=== PATIENT | female | born 1955 | race Caucasian/White ===

== ENCOUNTER 2022-07-04 15:30 | Emergency (ER) | payer BC, MEDICARE ==
[2022-07-04 15:38] VITALS: RESP 16; TEMP 98
--- NOTE | 2022-07-04 15:40 | ED ---
General Adult HPI - General Source: patient, family, RN notes reviewed Mode of arrival: ambulatory Limitations: no limitations <Nathanael Artis - Last Filed: 07/04/22 15:38> <Jaden Villa - Last Filed: 07/04/22 20:33> - General Stated complaint: Dizziness,hypertension Time Seen by Provider: 07/04/22 15:34 - History of Present Illness Initial comments: 67-year-old female presents emergency Department from urgent care with chief complaint of feeling lightheaded, hypertension. Patient states she just feels off she states almost lightheaded or discharges. She moves quickly. Patient was seen in urgent care and found to be hypertensive. Patient states she is very anxious about her blood pressure she does not that she does have a history of hypertension but takes some organic medications for she is on no prescription medications. Patient denies any current complaints of chest pain or shortness of breath she has a focal weakness no nausea vomiting diarrhea constipation. Patient states she's had some dizziness and the past. (Nathanael Artis) This is a 67-year-old female presents emergency department stating that she get up this morning and felt off his if things are moving slightly. Patient states she focused on one thing it would settle down. Patient states she didn't think she would fall over but she felt like she needed to sit down to stabilize herself. Patient states she also comes in because her blood pressure was elevated. Patient states she has high blood pressure but she's been taking some organic medication for blood pressure. Patient denies numbness weakness. Patient denies chest pain difficulty breathing first breath per patient denies any palpitations. Patient denies any deafness or ringing in ears. Patient denies any recent fever chills or cough. Patient states she hasn't been sick at all. Patient denies any nausea vomiting diarrhea. Patient denies any abdominal pain. Patient denies any dysuria hematuria urinary frequency. Patient states she had vertigo about 7 years ago and was worked up by ENT had a CAT scan of her injury as well as CT of her head. Patient also has high blood pressure at that time. (Jaden Villa) - Related Data Home Medications Medication Instructions Recorded Confirmed Aspirin 81 mg PO DAILY 07/10/14 07/10/14 Esomeprazole Magnesium [NexIUM] 40 mg PO DAILY 07/10/14 07/10/14 Pravastatin Sodium [Pravachol] 80 mg PO HS 07/10/14 07/10/14 Previous Rx's Medication Instructions Recorded Meclizine [Antivert] 25 mg PO TID #20 tab 07/10/14 amLODIPine [Norvasc] 10 mg PO DAILY #30 tablet 07/04/22 Allergies Allergy/AdvReac Type Severity Reaction Status Date / Time acetaminophen Allergy Unknown Verified 07/10/14 20:54 [From Darvocet-N] NSAIDS (Non-Steroidal Allergy Unknown Verified 07/10/14 21:07 Anti-Inflamma propoxyphene napsylate Allergy Unknown Verified 07/10/14 20:54 [From Darvocet-N] Sulfa (Sulfonamide Allergy Unknown Verified 07/10/14 20:54 Antibiotics) tuberculin, purified protein Allergy Unknown Verified 07/10/14 20:58 deriva [tuberculin,purif.prot.deriv.] Review of Systems ROS Other: All systems not noted in ROS Statement are negative. <Nathanael Artis - Last Filed: 07/04/22 15:38> ROS Other: All systems not noted in ROS Statement are negative. <Jaden Villa - Last Filed: 07/04/22 20:33> ROS Statement: Those systems with pertinent positive or pertinent negative responses have been documented in the HPI. Past Medical History Past Medical History: CVA/TIA, Hyperlipidemia Additional Past Medical History / Comment(s): TIA 2007 History of Any Multi-Drug Resistant Organisms: None Reported Past Surgical History: No Surgical Hx Reported Past Psychological History: No Psychological Hx Reported Smoking Status: Current every day smoker Past Alcohol Use History: Rare Past Drug Use History: None Reported <Nathanael Artis - Last Filed: 07/04/22 15:38> General Exam Limitations: no limitations <Nathanael Artis - Last Filed: 07/04/22 15:38> <Jaden Villa - Last Filed: 07/04/22 20:33> - General Exam Comments Initial Comments: GENERAL: Patient is well-developed and well-nourished. Patient is nontoxic and well- hydrated and is in mild distress. ENT: Neck is soft and supple. No significant lymphadenopathy is noted. Oropharynx is clear. Moist mucous membranes. Neck has full range of motion without eliciting any pain. EYES: The sclera were anicteric and conjunctiva were pink and moist. Extraocular movements were intact and pupils were equal round and reactive to light. Eyelids were unremarkable. Patient has no nystagmus PULMONARY: Unlabored respirations. Good breath sounds bilaterally. No audible rales rhonchi or wheezing was noted. CARDIOVASCULAR: There is a regular rate and rhythm without any murmurs gallops or rubs. ABDOMEN: Soft and nontender with normal bowel sounds. SKIN: Skin is clear with no lesions or rashes and otherwise unremarkable. NEUROLOGIC: Patient is alert and oriented x3. Cranial nerves II through XII are grossly intact. Motor and sensory are also intact. Normal speech, volume and content. Symmetrical smile. Finger to nose testing is normal bilaterally MUSCULOSKELETAL: Normal extremities with adequate strength and full range of motion. No lower extremity swelling or edema. No calf tenderness. LYMPHATICS: No significant lymphadenopathy is noted PSYCHIATRIC: Normal psychiatric evaluation. (Jaden Villa) Course Vital Signs 07/04/22 07/04/22 15:34 20:00 Temperature 98 F Pulse Rate 64 50 L Respiratory 16 16 Rate Blood Pressure 199/93 174/76 O2 Sat by Pulse 98 98 Oximetry Medical Decision Making - Lab Data Result diagrams: 07/04/22 16:11 07/04/22 16:11 <Jaden Villa - Last Filed: 07/04/22 20:33> - Medical Decision Making EKG was interpreted by myself. EKG shows normal sinus rhythm at 60 bpm AL interval 170 QRS is 90 QT interval 44 QTC is 44 per patient's EKG shows no ST segment elevation or depression. Was pt. sent in by a medical professional or institution? @ -None Did you speak to anyone other than the patient for history? @ -Family Did you review nursing and triage notes? @ -Agreed with nursing notes Were old charts reviewed? @ -I reviewed previous CT scans back from 2014 when she had vertigo at that time Differential Diagnosis? @ -Differential Dizziness: Benign paroxysmal positional Vertigo, Menieres disease, otitis media, acoustic neuroma, vertebrobasilar insufficiency, cerebellar stroke, encephalitis, hypovolemic, arrhythmia, coronary artery syndrome, anemia, this is not meant to be an all-inclusive list EKG interpreted by me (3pts min.)? @ -As above X-rays interpreted by me (1pt min.)? @ -None CT interpreted by me (1pt min.)? @ -Computed tomography scan was interpreted by myself CT of the brain showed no acute abnormality U/S interpreted by me (1pt. min.)? @ -None What testing was considered but not performed? (CT, X-rays, U/S, labs)? Why? @ -None What meds were considered but not given? Why? @ -I considered giving the patient Antivert however the patient or to have Antivert home so decided against that. Did you discuss the management of the patient with other professionals? @ -None Did you reconcile home meds? @ -No Was smoking cessation discussed for >3mins.? @ -None Was critical care preformed (if so, how long)? @ -None Were there social determinants of health that impacted care today? How? (Homelessness, low income, unemployed, alcoholism, drug addiction, transportation, low edu. Level, literacy, decrease access to med. care, long term, rehab)? @ -No Was there de-escalation of care discussed even if they declined? (Discuss DNR or withdrawal of care, Hospice)? @ -None What co-morbidities impacted this encounter? (DM, HTN, Smoking, COPD, CAD, Cancer, CVA, Hep., AIDS, mental health diagnosis, sleep apnea, morbid obesity)? @ -Patient has hypertension and that may be increasing her symptoms because last time she was here she was very hypertensive and again having vertigo-like symptoms Was patient admitted / discharged? @ -Patient will be discharged home with blood pressure medications and she has Antivert already at home. Undiagnosed new problem with uncertain prognosis? @ -No Drug Therapy requiring intensive monitoring for toxicity (Heparin, Nitro, Insulin, Cardizem)? @ -No Were any procedures done? @ -Known Diagnosis/symptom? @ -Vertigo Acute, or Chronic, or Acute on Chronic? @ -Acute Uncomplicated (without systemic symptoms) or Complicated (systemic symptoms)? @ -Uncomplicated Side effects of treatment? @ -None Exacerbation, Progression, or Severe Exacerbation] @ -No Poses a threat to life or bodily function? @ -No Diagnosis/symptom? @ -Hypertensive urgency Acute, or Chronic, or Acute on Chronic? @ -Acute on chronic Uncomplicated (without systemic symptoms) or Complicated (systemic symptoms)? @ -Complicated because the patient is now having vertigo Side effects of treatment? @ -None Exacerbation, Progression, or Severe Exacerbation] @ -Exacerbation Poses a threat to life or bodily function? @ -No (Jaden Villa) - Lab Data Lab Results 07/04/22 07/04/22 07/04/22 Range/Units 16:11 16:11 16:11 WBC 9.7 (3.8-10.6) k/uL RBC 5.50 H (3.80-5.40) m/uL Hgb 16.3 H (11.4-16.0) gm/dL Hct 48.0 H (34.0-46.0) % MCV 87.4 (80.0-100.0) fL MCH 29.6 (25.0-35.0) pg MCHC 33.8 (31.0-37.0) g/dL RDW 13.0 (11.5-15.5) % Plt Count 298 (150-450) k/uL MPV 8.1 Neutrophils % 58 % Lymphocytes % 34 % Monocytes % 4 % Eosinophils % 2 % Basophils % 1 % Neutrophils # 5.6 (1.3-7.7) k/uL Lymphocytes # 3.3 (1.0-4.8) k/uL Monocytes # 0.3 (0-1.0) k/uL Eosinophils # 0.2 (0-0.7) k/uL Basophils # 0.1 (0-0.2) k/uL Sodium 140 (137-145) mmol/L Potassium 4.2 (3.5-5.1) mmol/L Chloride 107 (98-107) mmol/L Carbon Dioxide 25 (22-30) mmol/L Anion Gap 8 mmol/L BUN 11 (7-17) mg/dL Creatinine 0.77 (0.52-1.04) mg/dL Est GFR (CKD-EPI)AfAm >90 (>60 ml/min/1.73 sqM) Est GFR (CKD-EPI)NonAf 81 (>60 ml/min/1.73 sqM) Glucose 100 H (74-99) mg/dL Calcium 9.4 (8.4-10.2) mg/dL Magnesium 1.9 (1.6-2.3) mg/dL Total Bilirubin 0.4 (0.2-1.3) mg/dL AST 22 (14-36) U/L ALT 22 (4-34) U/L Alkaline Phosphatase 122 (38-126) U/L Troponin I <0.012 (0.000-0.034) ng/mL Total Protein 7.4 (6.3-8.2) g/dL Albumin 4.2 (3.5-5.0) g/dL Disposition <Nathanael Artis - Last Filed: 07/04/22 15:38> Is patient prescribed a controlled substance at d/c from ED?: No Time of Disposition: 20:32 <Jaden Villa - Last Filed: 07/04/22 20:33> Clinical Impression: Vertigo, Hypertensive urgency Disposition: HOME SELF-CARE Condition: Good Instructions (If sedation given, give patient instructions): Hypertension (ED), Vertigo (ED) Prescriptions: amLODIPine [Norvasc] 10 mg PO DAILY #30 tablet Referrals: Michael Christianson DO [Primary Care Provider] - 1-2 days
[2022-07-04 16:32] LABS: Basophils # (A) 0.1 k/uL (0-0.2); Basophils % (A) 1 %; Eosinophils # (A) 0.2 k/uL (0-0.7); Eosinophils % (A) 2 %; HGB 16.3 gm/dL (11.4-16.0); Lymphocytes # (A) 3.3 k/uL (1.0-4.8); Lymphocytes % (A) 34 %; MCH 29.6 pg (25.0-35.0); MCHC 33.8 g/dL (31.0-37.0); MCV 87.4 fL (80.0-100.0); Mean Platelet Volume 8.1; Monocytes # (A) 0.3 k/uL (0-1.0); Monocytes % (A) 4 %; Neutrophils # (A) 5.6 k/uL (1.3-7.7); Neutrophils % (A) 58 %; Platelet Count 298 k/uL (150-450); WBC 9.7 k/uL (3.8-10.6)
[2022-07-04 17:13] LABS: ALT 22 U/L (4-34); AST 22 U/L (14-36); African American GFR (CKD) >90 (>60 ml/min/1.73 sqM); Albumin 4.2 g/dL (3.5-5.0); Alkaline Phosphatase 122 U/L (38-126); Anion Gap 8 mmol/L; Blood Urea Nitrogen 11 mg/dL (7-17); Calcium 9.4 mg/dL (8.4-10.2); Carbon Dioxide 25 mmol/L (22-30); Chloride 107 mmol/L (98-107); Glucose 100 mg/dL (74-99); Magnesium 1.9 mg/dL (1.6-2.3); Non-African American GFR(CKD) 81 (>60 ml/min/1.73 sqM); Potassium 4.2 mmol/L (3.5-5.1); Sodium 140 mmol/L (137-145); Total Bilirubin 0.4 mg/dL (0.2-1.3); Total Protein 7.4 g/dL (6.3-8.2)
[2022-07-04] MEDS ORDERED: hydrALAZINE HCL 20 MG/ML 1 ML VIAL IVP STA (19:09)
--- NOTE | 2022-07-04 19:33 | CT ---
EXAMINATION TYPE: CT brain wo con DATE OF EXAM: 07/04/2022 COMPARISON: 07/10/2014 HISTORY: Dizziness, vomiting, high blood pressure CT DLP: 1162.4 mGycm Automated exposure control for dose reduction was used. Images obtained of the brain without contrast. Ventricles and sulci appear normal. There is no mass effect or midline shift. No sign of intracranial hemorrhage. Calvarium is intact. Skull base is intact. IMPRESSION: Negative unenhanced head CT scan. No change.
[2022-07-04 21:46] VITALS: BP 119/54; PULSE 65
== END 2022-07-04 21:47 | disposition home or self-care (01) ==
LOC: EC 15:30
DX: R42 Dizziness and giddiness (principal); I16.0 Hypertensive urgency; I63.9 Cerebral infarction, unspecified; E78.5 Hyperlipidemia, unspecified; F17.200 Nicotine dependence, unspecified, uncomplicated; I10 Essential (primary) hypertension; Z79.82 Long term (current) use of aspirin; Z79.899 Other long term (current) drug therapy; Z88.1 Allergy status to other antibiotic agents; Z88.2 Allergy status to sulfonamides; Z88.6 Allergy status to analgesic agent; Z88.8 Allergy status to other drugs, medicaments and biological substances; Z88.5 Allergy status to narcotic agent
CPT/HCPCS: 36415; 93005; 80053; 83735; 84484; 85025; 70450; 99284; 96374; J0360; 99285